=== PATIENT | female | born 1980 | race Hispanic/Latino ===

== ENCOUNTER 2022-11-11 15:17 | Emergency (ER) | payer MEDICARE ==
[~2022-11-11] VITALS: Ht 170.2 cm; Wt 90.7 kg
[2022-11-11] MEDS ORDERED: ALBUTEROL/IPRATROPIUM 3 ML NEB NEB STA (15:32)
[2022-11-11] MEDS ORDERED: ASPIRIN 325 MG TAB PO STA (15:32)
[2022-11-11] MEDS ORDERED: PREDNISONE 20 MG TAB PO STA (15:32)
[2022-11-11] MEDS ORDERED: PREDNISONE 20 MG TAB ONE (15:39)
[2022-11-11] MEDS ORDERED: ASPIRIN 325 MG TAB ONE (15:39)
[2022-11-11] MEDS ORDERED: ALBUTEROL/IPRATROPIUM 3 ML NEB ONE (15:40)
[2022-11-11 15:53] VITALS: PULSE 83; RESP 20
[2022-11-11 16:19] LABS: BASOPHILS # (AUTO) 0.1 (0.0-0.1); BASOPHILS % 0.5 % (0.0-1.0); EOSINOPHILS # (AUTO) 0.1 (0.0-0.4); EOSINOPHILS % 0.9 % (0.0-6.0); HEMATOCRIT 44.1 % (34.2-44.1); HEMOGLOBIN 14.9 g/dL (12.0-16.0); LYMPHOCYTES # (AUTO) 2.7 (1.0-3.2); LYMPHOCYTES % 26.3 % (18.0-39.1); MEAN CORPUSCULAR HEMOGLOBIN 31.2 pg (28-32); MEAN CORPUSCULAR HGB CONC 33.8 g/dL (31-35); MEAN CORPUSCULAR VOLUME 92.3 fL (81-99); MONOCYTES # (AUTO) 0.7 (0.2-0.8); MONOCYTES % 7.1 % (4.4-11.3); NEUTROPHILS # (AUTO) 6.7 (2.1-6.9); NEUTROPHILS % 64.9 % (38.7-80.0); PLATELET COUNT 266 x10e3/uL (140-360); RED BLOOD COUNT 4.78 x10e6/uL (3.6-5.1); RED CELL DISTRIBUTION WIDTH 13.7 % (11.7-14.4)
[2022-11-11 16:40] LABS: ALANINE AMINOTRANSFERASE 13 IU/L (0-55); ALBUMIN 3.7 g/dL (3.5-5.0); ALBUMIN/GLOBULIN RATIO 1.1 (0.8-2.0); ALKALINE PHOSPHATASE 96 IU/L (40-150); ANION GAP 14.1 mmol/L (8-16); BLOOD UREA NITROGEN < 5 mg/dL (7-26); CALCIUM 8.7 mg/dL (8.4-10.2); CARBON DIOXIDE 21 mmol/L (22-29); CHLORIDE 107 mmol/L (98-107); CREATINE KINASE 85 IU/L (29-168); CREATININE, SERUM 0.83 mg/dL (0.57-1.11); GLUCOSE 113 mg/dL (74-118); POTASSIUM 3.1 mmol/L (3.5-5.1); SODIUM 139 mmol/L (136-145)
[2022-11-11 16:41] LABS: BUN/CREATININE RATIO 6 (6-25)
[2022-11-11 17:57] VITALS: O2SAT 97
[2022-11-11] MEDS ORDERED: PREDNISONE20 MG PO (17:59)
[2022-11-11] MEDS ORDERED: VENTOLIN HFA18 GM INH (17:59)
[2022-11-11] MEDS ORDERED: AZITHROMYCIN250 MG PO (17:59)
== END 2022-11-11 18:07 | disposition home or self-care (01) ==
LOC: FSED 15:26
DX: R07.89 Other chest pain (principal); J44.9 Chronic obstructive pulmonary disease, unspecified; Z20.822 Contact with and (suspected) exposure to COVID-19; R94.31 Abnormal electrocardiogram [ECG] [EKG]
CPT/HCPCS: 0223U; 36415; 71045; 71250; 80053; 80076; 82550; 82553; 83690; 83880; 84484; 85025; 93005; 99284; J7512

== ENCOUNTER 2024-05-24 12:58 | Emergency (ER) | payer MEDICARE ==
[~2024-05-24] VITALS: Ht 171.4 cm; Wt 94.0 kg
[~2024-05-24 12:58] MED LIST: AMOXICILLIN500 MG PO; AZITHROMYCIN250 MG PO; MUCINEX600 MG PO; PREDNISONE20 MG PO; PROVENTIL HFA6.7 GM INH; VENTOLIN HFA18 GM INH
[2024-05-24 13:04] VITALS: TEMP 99.1
[2024-05-24] MEDS: ACETAMINOPHEN 325 MG TAB PO ONE (13:37)
[2024-05-24 13:38] VITALS: PULSE 73; RESP 18
[2024-05-24] MEDS: ALBUTEROL/IPRATROPIUM 3 ML NEB NEB ONE (13:38)
[2024-05-24] MEDS ORDERED: AMOXICILLIN500 MG PO (14:04)
[2024-05-24] MEDS ORDERED: VENTOLIN HFA18 GM INH (14:05)
[2024-05-24 14:53] VITALS: PULSE 69; RESP 16; O2SAT 98
== END 2024-05-24 14:50 | disposition home or self-care (01) ==
LOC: FSED 13:00
DX: R06.00 Dyspnea, unspecified (principal); J44.1 Chronic obstructive pulmonary disease with (acute) exacerbation; R05.9 Cough, unspecified; I50.9 Heart failure, unspecified; I25.10 Atherosclerotic heart disease of native coronary artery without angina pectoris; R01.1 Cardiac murmur, unspecified; I25.2 Old myocardial infarction; Z11.52 Encounter for screening for COVID-19; R94.31 Abnormal electrocardiogram [ECG] [EKG]
CPT/HCPCS: 0223U; 71046; 80053; 82553; 83880; 84484; 85025; 87400; 93005; 99283; J0696

== ENCOUNTER 2024-10-09 15:18 | Emergency (ER) | payer MEDICARE ==
[~2024-10-09] VITALS: Ht 170.2 cm; Wt 89.6 kg
[2024-10-09 15:25] VITALS: PULSE 71; RESP 20; TEMP 99.2; O2SAT 100
[2024-10-09] MEDS ORDERED: HYDROCODON-ACE1 EA11 PO (15:46)
== END 2024-10-09 15:58 | disposition home or self-care (01) ==
LOC: FSED 15:47
DX: M54.2 Cervicalgia (principal); R07.89 Other chest pain; S20.214D Contusion of middle front wall of thorax, subsequent encounter; V43.52XD Car driver injured in collision with other type car in traffic accident, subsequent encounter; J44.9 Chronic obstructive pulmonary disease, unspecified; I50.9 Heart failure, unspecified; I25.10 Atherosclerotic heart disease of native coronary artery without angina pectoris; R01.1 Cardiac murmur, unspecified; M54.9 Dorsalgia, unspecified; G89.29 Other chronic pain; I25.2 Old myocardial infarction; F17.210 Nicotine dependence, cigarettes, uncomplicated
CPT/HCPCS: 99284